=== PATIENT | male | born 1980 | race Caucasian/White ===

== ENCOUNTER 2024-05-20 20:53 | Emergency (ER) | payer SELFPAY ==
[2024-05-20 21:48] VITALS: TEMP 99.2
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
[2024-05-21] VITALS: PULSE 80
[2024-05-21 00:02] VITALS: BP 128/76; RESP 17
[2024-05-21 00:04] VITALS: O2SAT 95
[2024-05-21] MEDS ORDERED: NORCO 5/325 MG ONE (00:09)
[2024-05-21] MEDS: NORCO 5/325 MG PO ONE (00:09)
== END 2024-05-21 00:21 | disposition home or self-care (01) ==
LOC: ED 20:53
DX: S22.31XA Fracture of one rib, right side, initial encounter for closed fracture (principal); S40.011A Contusion of right shoulder, initial encounter; V13.4XXA Pedal cycle driver injured in collision with car, pick-up truck or van in traffic accident, initial encounter; Y93.55 Activity, bike riding
CPT/HCPCS: 71250; 99283; A9270-GY

== ENCOUNTER 2024-05-29 08:53 | Observation (INO) | payer SELFPAY ==
--- NOTE | 2024-05-29 09:18 | ERPHSYRPT ---
- History of Present Illness Time Seen by Provider: 05/29/24 09:05 Source: patient Exam Limitations: no limitations Physician History: For the past 2 weeks pt has had shortness of air, nasal congestion and a non- productive cough; today diarrhea x2. Allergies/Adverse Reactions: No Known Drug Allergies Allergy (Verified 05/29/24 09:13) Home Medications: No Reportable Medications [No Reported Medications] 05/20/24 [History] Hx Tetanus, Diphtheria Vaccination/Date Given: Yes Hx Influenza Vaccination/Date Given: No Hx Pneumococcal Vaccination/Date Given: No Travel Risk - Emerging Infectious Disease Are you exhibiting symptoms associated with any current EIDs: No - Review of Systems Ears, Nose, & Throat: Nose Congestion Respiratory: Cough, Dyspnea Abdominal/Gastrointestinal: Diarrhea Genitourinary Symptoms: No Dysuria Neurological: No Headache - Past Medical History Pertinent Past Medical History: Yes Neurological History: No Pertinent History ENT History: No Pertinent History Cardiac History: No Pertinent History Respiratory History: No Pertinent History Endocrine Medical History: No Pertinent History Musculoskeletal History: No Pertinent History GI Medical History: No Pertinent History History: No Pertinent History Psycho-Social History: No Pertinent History Male Reproductive Disorders: No Pertinent History Other Medical History: hydrocele - Past Surgical History Past Surgical History: Yes Neuro Surgical History: No Pertinent History Cardiac: No Pertinent History Respiratory: No Pertinent History Gastrointestinal: Appendectomy Genitourinary: No Pertinent History Musculoskeletal: Orthopedic Surgery Male Surgical History: No Pertinent History Other Surgical History: R foot-pins - Social History Smoking Status: Never smoker Exposure to second hand smoke: No Drug Use: none - Social Determinants of Health Will the patient participate in the screening: Declined to provide - Nursing Vital Signs Nursing Vital Signs: Initial Vital Signs Temperature 97.6 F 05/29/24 09:05 Pulse Rate 91 H 05/29/24 09:05 Respiratory Rate 23 05/29/24 09:05 Blood Pressure 123/81 05/29/24 09:05 O2 Sat by Pulse Oximetry 99 05/29/24 09:05 Pain Scale Pain Intensity 0 - Physical Exam General Appearance: alert Eye Exam: PERRL/EOMI Ears, Nose, Throat Exam: nasal congestion, pharyngeal erythema Neck Exam: normal inspection Respiratory Exam: wheezing (minimal expiratory wheezing over posterior bases) Cardiovascular/Chest Exam: normal heart sounds Abdominal/Gastrointestinal Exam: normal bowel sounds Extremity Exam: No pedal edema Neurologic Exam: alert, cooperative Skin Exam: warm, dry SpO2 Interpretation: normal, hypoxic SpO2: 99 O2 Delivery: Room Air - Course EKG Interpreted by Me: RATE (89), Sinus Rhythm, NORMAL AXIS, Other (QTc = 466) - Radiology Exams Chest X-ray Interpretation: Discussed w/ radiologist (PA/lateral chest demonstrates new mild right middle lobe and lingula infiltrates/atelectasis without consolidation/large effusion. Remaining heart and lungs unremarkable. Bony thorax intact again with minimal levoscoliosis.) - CT Exams Chest CT Interpretation: Discussed w/radiologist (No obv) Ordered Tests: Active Orders 24 hr Category Date Time Status EKG-ER Only STAT Care 05/29/24 09:17 Active IV Insertion STAT Care 05/29/24 09:15 Active CHEST 2 VIEWS (PA AND LAT) Stat Exams 05/29/24 09:16 Completed CHEST WITH CONTRAST [CT] Stat Exams 05/29/24 10:44 Completed AMYLASE Stat Lab 05/29/24 09:25 Completed BLOOD CULTURE Stat Lab 05/29/24 10:55 Received CBC W DIFF Stat Lab 05/29/24 09:15 Completed CMP Stat Lab 05/29/24 09:25 Completed CULTURE,SPUTUM Stat Lab 05/29/24 10:40 Ordered D-DIMER QUANTITATIVE Stat Lab 05/29/24 09:25 Completed LIPASE Stat Lab 05/29/24 09:25 Completed MAGNESIUM Stat Lab 05/29/24 09:25 Completed TROPONIN Q4H Lab 05/29/24 09:25 Completed TROPONIN Q4H Lab 05/29/24 09:25 Completed TROPONIN Q4H Lab 05/29/24 17:15 Ordered UA W/RFX UR CULTURE Stat Lab 05/29/24 11:43 Completed Urine Triage Profile Stat Lab 05/29/24 11:43 Received Respiratory Therapy Assessment DAILY RT 05/29/24 09:22 Active Medication Summary Discontinued Medications Generic Name Dose Route Start Last Admin Trade Name Freq PRN Reason Stop Dose Admin Albuterol Sulfate 2.5 mg 05/29/24 09:17 05/29/24 09:23 Albuterol Sulfate 2.5 Mg/3 Ml Neb IH 05/29/24 09:18 2.5 mg STAT ONE Administration Albuterol Sulfate Confirm 05/29/24 09:21 Albuterol Sulfate 2.5 Mg/3 Ml Neb Administered 05/29/24 09:22 Dose 2.5 mg IH .STK-MED ONE Sodium Chloride 1,000 mls @ 999 mls/hr 05/29/24 09:15 05/29/24 10:35 Sodium Chloride 0.9% 1000 Ml IV 05/29/24 10:15 Infused .Q1H1M STA Infusion Sodium Chloride Confirm 05/29/24 09:32 Sodium Chloride 0.9% 1000 Ml Administered 05/29/24 09:33 Dose 1,000 mls @ ud .ROUTE .STK-MED ONE Ceftriaxone Sodium 1 gm in 100 mls @ 200 mls/hr 05/29/24 10:39 05/29/24 12:04 Rocephin 1 Gm / 100 Ml Nacl IV 05/29/24 11:08 Infused STAT ONE Infusion Azithromycin 500 mg in 250 mls @ 250 mls/hr 05/29/24 10:39 05/29/24 11:40 Zithromax 500 Mg/ 250 Ml Nacl Premix IV 05/29/24 11:38 250 mls/hr STAT STA 250 mls/hr Administration Ceftriaxone Sodium Confirm 05/29/24 11:20 Rocephin 1 Gm / 100 Ml Nacl Administered 05/29/24 11:21 Dose 1 gm in 100 mls @ ud IV .STK-MED ONE Azithromycin Confirm 05/29/24 11:39 Zithromax 500 Mg/ 250 Ml Nacl Premix Administered 05/29/24 11:40 Dose 500 mg in 250 mls @ ud IV .STK-MED ONE Lab/Rad Data: Laboratory Result Diagrams 05/29/24 09:15 05/29/24 09:25 Laboratory Results 05/29/24 05/29/24 05/29/24 Range/Units 11:43 09:42 09:42 WBC (4.23-9.07) x10^3/uL RBC (4.63-6.08) x10^6/uL Hgb (13.7-17.5) g/dL Hct (40.1-51.0) % MCV (79.0-92.2) fL MCH (25.7-32.2) pg MCHC (32.3-36.5) g/dL RDW (11.6-14.4) % Plt Count (163-337) x10^3/uL MPV (9.4-12.4) fL Gran % (34.0-67.9) % Immature Gran % (Auto) (0.001-0.429) % Nucleat RBC Rel Count (0.00-0.2) % Eos # (Auto) (0.04-0.54) x10^3/uL Immature Gran # (Auto) (0.001-0.031) x10^3u/L Absolute Lymphs (auto) (1.32-3.57) x10^3/uL Absolute Monos (auto) (0.30-0.82) x10^3/uL Absolute Nucleated RBC (0.00-0.012) x10^3u/L Lymphocytes % (21.8-53.1) % Monocytes % (5.3-12.2) % Eosinophils % (0.8-7.0) % Basophils % (0.2-1.2) % Absolute Granulocytes (1.78-5.38) x10^3/uL Basophils # (0.01-0.08) x10^3/uL D-Dimer (0.0-0.50) mg/L Sodium (135-145) mmol/L Potassium (3.5-5.1) mmol/L Chloride (98-107) mmol/L Carbon Dioxide (22-30) mmol/L Anion Gap (5-15) MEQ/L BUN (9-20) mg/dL Creatinine (0.66-1.25) mg/dL Estimated GFR ML/MIN Glucose (74-106) mg/dL Calcium (8.4-10.2) mg/dL Magnesium (1.6-2.3) mg/dL Total Bilirubin (0.2-1.3) mg/dL AST (17-59) U/L ALT (0-50) U/L Alkaline Phosphatase (38-126) U/L Troponin I (0.000-0.033) ng/mL Serum Total Protein (6.3-8.2) g/dL Albumin (3.5-5.0) g/dL Amylase (30-110) U/L Lipase (23-300) U/L Urine Color Yellow (Yellow) Urine Appearance Cloudy A (Clear) Urine pH 7.5 (4.6-8.0) Ur Specific [place] >=1.030 A (1.005-1.030) Urine Protein Negative (Negative) Urine Glucose (UA) Negative (Negative) mg/dL Urine Ketones Negative (Negative) Urine Blood Negative (Negative) Urine Nitrite Negative (Negative) Urine Bilirubin Negative (Negative) Urine Urobilinogen 1.0 A (0.2) mg/dL Ur Leukocyte Esterase Negative (Negative) U Hyaline Cast (Auto) NONE SEEN (0-2) /LPF Urine Microscopic RBC 0-2 (0-5) /HPF Urine Microscopic WBC 0-2 (0-5) /HPF Ur Epithelial Cells None Seen (None Seen) /HPF Urine Bacteria None Seen (None Seen) /HPF Urine Culture Reflexed NO (NO) Influenza Type A Ag NEGATIVE (NEGATIVE) Influenza Type B Ag NEGATIVE (NEGATIVE) RSV (PCR) NEGATIVE (NEGATIVE) SARS-CoV-2 (PCR) NEGATIVE (NEGATIVE) Group A Strep Antibody DETECTED (NEGATIVE) 05/29/24 05/29/24 05/29/24 Range/Units 09:25 09:25 09:25 WBC (4.23-9.07) x10^3/uL RBC (4.63-6.08) x10^6/uL Hgb (13.7-17.5) g/dL Hct (40.1-51.0) % MCV (79.0-92.2) fL MCH (25.7-32.2) pg MCHC (32.3-36.5) g/dL RDW (11.6-14.4) % Plt Count (163-337) x10^3/uL MPV (9.4-12.4) fL Gran % (34.0-67.9) % Immature Gran % (Auto) (0.001-0.429) % Nucleat RBC Rel Count (0.00-0.2) % Eos # (Auto) (0.04-0.54) x10^3/uL Immature Gran # (Auto) (0.001-0.031) x10^3u/L Absolute Lymphs (auto) (1.32-3.57) x10^3/uL Absolute Monos (auto) (0.30-0.82) x10^3/uL Absolute Nucleated RBC (0.00-0.012) x10^3u/L Lymphocytes % (21.8-53.1) % Monocytes % (5.3-12.2) % Eosinophils % (0.8-7.0) % Basophils % (0.2-1.2) % Absolute Granulocytes (1.78-5.38) x10^3/uL Basophils # (0.01-0.08) x10^3/uL D-Dimer 0.74 H* (0.0-0.50) mg/L Sodium 136 (135-145) mmol/L Potassium 3.5 (3.5-5.1) mmol/L Chloride 102 (98-107) mmol/L Carbon Dioxide 27 (22-30) mmol/L Anion Gap 10.6 (5-15) MEQ/L BUN 17 (9-20) mg/dL Creatinine 0.74 (0.66-1.25) mg/dL Estimated GFR 113.9 ML/MIN Glucose 136 H (74-106) mg/dL Calcium 8.7 (8.4-10.2) mg/dL Magnesium 1.7 (1.6-2.3) mg/dL Total Bilirubin 0.40 (0.2-1.3) mg/dL AST 62 H (17-59) U/L ALT 90 H (0-50) U/L Alkaline Phosphatase 85 (38-126) U/L Troponin I < 0.012 < 0.012 (0.000-0.033) ng/mL Serum Total Protein 6.5 (6.3-8.2) g/dL Albumin 3.4 L (3.5-5.0) g/dL Amylase 62 (30-110) U/L Lipase 132 (23-300) U/L Urine Color (Yellow) Urine Appearance (Clear) Urine pH (4.6-8.0) Ur Specific [place] (1.005-1.030) Urine Protein (Negative) Urine Glucose (UA) (Negative) mg/dL Urine Ketones (Negative) Urine Blood (Negative) Urine Nitrite (Negative) Urine Bilirubin (Negative) Urine Urobilinogen (0.2) mg/dL Ur Leukocyte Esterase (Negative) U Hyaline Cast (Auto) (0-2) /LPF Urine Microscopic RBC (0-5) /HPF Urine Microscopic WBC (0-5) /HPF Ur Epithelial Cells (None Seen) /HPF Urine Bacteria (None Seen) /HPF Urine Culture Reflexed (NO) Influenza Type A Ag (NEGATIVE) Influenza Type B Ag (NEGATIVE) RSV (PCR) (NEGATIVE) SARS-CoV-2 (PCR) (NEGATIVE) Group A Strep Antibody (NEGATIVE) 05/29/24 Range/Units 09:15 WBC 8.9 (4.23-9.07) x10^3/uL RBC 3.70 L (4.63-6.08) x10^6/uL Hgb 11.6 L (13.7-17.5) g/dL Hct 33.9 L (40.1-51.0) % MCV 91.6 (79.0-92.2) fL MCH 31.4 (25.7-32.2) pg MCHC 34.2 (32.3-36.5) g/dL RDW 12.4 (11.6-14.4) % Plt Count 181 (163-337) x10^3/uL MPV 8.6 L (9.4-12.4) fL Gran % 65.4 (34.0-67.9) % Immature Gran % (Auto) 0.4 (0.001-0.429) % Nucleat RBC Rel Count 0.0 (0.00-0.2) % Eos # (Auto) 0.16 (0.04-0.54) x10^3/uL Immature Gran # (Auto) 0.04 H (0.001-0.031) x10^3u/L Absolute Lymphs (auto) 1.92 (1.32-3.57) x10^3/uL Absolute Monos (auto) 0.96 H (0.30-0.82) x10^3/uL Absolute Nucleated RBC 0.00 (0.00-0.012) x10^3u/L Lymphocytes % 21.5 L (21.8-53.1) % Monocytes % 10.8 (5.3-12.2) % Eosinophils % 1.8 (0.8-7.0) % Basophils % 0.1 L (0.2-1.2) % Absolute Granulocytes 5.82 H (1.78-5.38) x10^3/uL Basophils # 0.01 (0.01-0.08) x10^3/uL D-Dimer (0.0-0.50) mg/L Sodium (135-145) mmol/L Potassium (3.5-5.1) mmol/L Chloride (98-107) mmol/L Carbon Dioxide (22-30) mmol/L Anion Gap (5-15) MEQ/L BUN (9-20) mg/dL Creatinine (0.66-1.25) mg/dL Estimated GFR ML/MIN Glucose (74-106) mg/dL Calcium (8.4-10.2) mg/dL Magnesium (1.6-2.3) mg/dL Total Bilirubin (0.2-1.3) mg/dL AST (17-59) U/L ALT (0-50) U/L Alkaline Phosphatase (38-126) U/L Troponin I (0.000-0.033) ng/mL Serum Total Protein (6.3-8.2) g/dL Albumin (3.5-5.0) g/dL Amylase (30-110) U/L Lipase (23-300) U/L Urine Color (Yellow) Urine Appearance (Clear) Urine pH (4.6-8.0) Ur Specific [place] (1.005-1.030) Urine Protein (Negative) Urine Glucose (UA) (Negative) mg/dL Urine Ketones (Negative) Urine Blood (Negative) Urine Nitrite (Negative) Urine Bilirubin (Negative) Urine Urobilinogen (0.2) mg/dL Ur Leukocyte Esterase (Negative) U Hyaline Cast (Auto) (0-2) /LPF Urine Microscopic RBC (0-5) /HPF Urine Microscopic WBC (0-5) /HPF Ur Epithelial Cells (None Seen) /HPF Urine Bacteria (None Seen) /HPF Urine Culture Reflexed (NO) Influenza Type A Ag (NEGATIVE) Influenza Type B Ag (NEGATIVE) RSV (PCR) (NEGATIVE) SARS-CoV-2 (PCR) (NEGATIVE) Group A Strep Antibody (NEGATIVE) - Progress Progress: unchanged Discussed with : Janice (Spoke with & discussed pt with Dr. Ledesma(~1200) - obs) Counseled pt/family regarding: lab results, diagnosis, rad results Medical Desision Making - Diagnostic Testing Diagnostic test were ordered, analyzed, and reviewed by me: Yes Radiological Interpretation: Discussed w/ radiologist - Departure Departure Disposition: Observation Clinical Impression: Strep pharyngitis, Bilateral pneumonia, Dyspnea Condition: Stable Critical Care Time: No Referrals: DOCTOR,NO FAMILY [Primary Care Provider] - Follow up/PCP as directed
[2024-05-29] MEDS ORDERED: PROVENTIL 2.5 MG/3 ML NEB IH ONE (09:21)
[2024-05-29] MEDS: PROVENTIL 2.5 MG/3 ML NEB IH ONE (09:23)
[2024-05-29] MEDS ORDERED: Sodium Chloride 0.9% 1000 ML 1,000 ML ONE (09:32)
[2024-05-29] MEDS: Sodium Chloride 0.9% 1000 ML 1,000 ML IV STA (09:33)
[2024-05-29 09:34] LABS: Absolute Neutrophil Ct (ANC) 5.82 x10^3/uL (1.78-5.38); BASOPHIL % 0.1 % (0.2-1.2); Basophil (Absolute #) 0.01 x10^3/uL (0.01-0.08); Eosinophil % 1.8 % (0.8-7.0); Eosinophil (Absolute #) 0.16 x10^3/uL (0.04-0.54); Hematocrit 33.9 % (40.1-51.0); Hemoglobin 11.6 g/dL (13.7-17.5); IMMATURE GRAN # 0.04 x10^3u/L (0.001-0.031); IMMATURE GRAN % 0.4 % (0.001-0.429); Lymphocyte (Absolute #) 1.92 x10^3/uL (1.32-3.57); Lymphocytes % 21.5 % (21.8-53.1); Mean Cell Volume 91.6 fL (79.0-92.2); Mean Corpuscular Hemoglobin 31.4 pg (25.7-32.2); Mean Corpuscular Hgb Concent. 34.2 g/dL (32.3-36.5); Mean Platelet Volume 8.6 fL (9.4-12.4); Monocyte (Absolute #) 0.96 x10^3/uL (0.30-0.82); Monocytes % 10.8 % (5.3-12.2); Neutrophil % 65.4 % (34.0-67.9); Platelet Count 181 x10^3/uL (163-337); Red Cell Distribution Width 12.4 % (11.6-14.4); White Blood Count 8.9 x10^3/uL (4.23-9.07)
[2024-05-29 09:59] LABS: ALBUMIN 3.4 g/dL (3.5-5.0); ALKALINE PHOSPHATASE 85 U/L (38-126); AMYLASE 62 U/L (30-110); ANION GAP 10.6 MEQ/L (5-15); BLOOD UREA NITROGEN 17 mg/dL (9-20); CHLORIDE 102 mmol/L (98-107); Calcium 8.7 mg/dL (8.4-10.2); Carbon Dioxide 27 mmol/L (22-30); Creatinine 1 0.74 mg/dL (0.66-1.25); EST GLOMERULAR FILTRATION RATE 113.9 ML/MIN; Glucose 136 mg/dL (74-106); LIPASE 132 U/L (23-300); MAGNESIUM 1.7 mg/dL (1.6-2.3); Potassium 3.5 mmol/L (3.5-5.1); SGOT/AST 62 U/L (17-59); SGPT/ALT 90 U/L (0-50); SODIUM 136 mmol/L (135-145); TROPONIN < 0.012 ng/mL (0.000-0.033); Total Protein 6.5 g/dL (6.3-8.2)
--- NOTE | 2024-05-29 10:08 | XRAY ---
Indication: Cough. Comparison: CT chest May 20, 2024 PA/lateral chest demonstrates new mild right middle lobe and lingula infiltrates/atelectasis without consolidation/large effusion. Remaining heart and lungs unremarkable. Bony thorax intact again with minimal levoscoliosis.
[2024-05-29 10:34] LABS: INFLUENZA A NEGATIVE (NEGATIVE); INFLUENZA B NEGATIVE (NEGATIVE); RESPIRATORY SYNCTIAL VIRUS NEGATIVE (NEGATIVE); SARS-CoV-2 Xpert Express NEGATIVE (NEGATIVE)
[2024-05-29] MEDS ORDERED: ROCEPHIN 1 GM / 100 ML NaCl 1 GM/100 ML IVPB IV ONE (11:20)
[2024-05-29] MEDS: ROCEPHIN 1 GM / 100 ML NaCl 1 GM/100 ML IVPB IV ONE (11:20)
--- NOTE | 2024-05-29 11:30 | XRAY ---
Indication: Short of breath. Elevated d-dimer. Multiple contiguous axial images obtained through the chest using 80 cc Isovue 370 contrast and PE protocol. Comparison: CT chest without contrast May 20, 2024. Adequate opacification pulmonary arteries. Mild diffuse respiration artifact limits evaluation of distal lobar and segmental branches. No obvious pulmonary embolus. Heart not enlarged. Aorta is normal course and caliber. No pathologic mediastinal/hilar lymphadenopathy. Lungs demonstrates new right middle lobe, medial right lower lobe, and lingula infiltrates/atelectasis. No effusion or pneumothorax. Bony thorax intact again with minimal multilevel degenerative endplate spurring and small multilevel thoracic Schmorl nodes. Limited upper abdomen again demonstrates diffuse fatty liver. Impression: 1. Respiration artifact limits evaluation for pulmonary embolus. No obvious pulmonary embolus. 2. New right middle lobe, right lower lobe, and lingula infiltrates/atelectasis. 3. Again chronic findings including fatty liver and chronic bony findings.
[2024-05-29] MEDS ORDERED: Zithromax 500 MG/ 250 ML NaCl Premix 500 MG/250 ML IVPB IV ONE (11:39)
[2024-05-29] MEDS: Zithromax 500 MG/ 250 ML NaCl Premix 500 MG/250 ML IVPB IV STA (11:40)
[2024-05-29 12:13] LABS: Appearance Cloudy (Clear); Bacteria None Seen /HPF (None Seen); Bilirubin Negative (Negative); Blood Negative (Negative); Epithelial Cells None Seen /HPF (None Seen); Glucose, Urine Negative (Negative); Hyaline Casts NONE SEEN /LPF (0-2); Ketones Negative (Negative); Leukocyte Esterase Negative (Negative); Nitrite Negative (Negative); Ph 7.5 (4.6-8.0); Protein,Urine Dip Negative (Negative); RBC 0-2 /HPF (0-5); Specific Gravity >=1.030 (1.005-1.030); WBC 0-2 /HPF (0-5)
[2024-05-29 12:14] LABS: ADD URINE CULTURE? NO (NO)
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
[2024-05-29 13:31] LABS: Barbiturate,Urine NEGATIVE (NEGATIVE); Benzodiazepine,Urine NEGATIVE (NEGATIVE); Cocaine,Urine NEGATIVE (NEGATIVE); Methadone,Urine NEGATIVE (NEGATIVE); Opiate,Urine NEGATIVE (NEGATIVE); PCP,Urine NEGATIVE (NEGATIVE); THC,Urine NEGATIVE (NEGATIVE)
[2024-05-29 13:51] LABS: Amphetamine,Urine POSITIVE (NEGATIVE)
[2024-05-29] MEDS: PROVENTIL 2.5 MG/3 ML NEB IH SCH (16:07)
[2024-05-29] MEDS: HYDROCODONE-CHLORPHEN ER SUSP PO PRN (17:53)
[2024-05-30 05:12] LABS: Absolute Neutrophil Ct (ANC) 4.22 x10^3/uL (1.78-5.38); BASOPHIL % 0.3 % (0.2-1.2); Basophil (Absolute #) 0.02 x10^3/uL (0.01-0.08); Eosinophil % 2.8 % (0.8-7.0); Hematocrit 37.7 % (40.1-51.0); Hemoglobin 12.9 g/dL (13.7-17.5); IMMATURE GRAN # 0.04 x10^3u/L (0.001-0.031); IMMATURE GRAN % 0.6 % (0.001-0.429); Lymphocyte (Absolute #) 1.86 x10^3/uL (1.32-3.57); Lymphocytes % 26.4 % (21.8-53.1); Mean Cell Volume 91.3 fL (79.0-92.2); Mean Corpuscular Hemoglobin 31.2 pg (25.7-32.2); Mean Corpuscular Hgb Concent. 34.2 g/dL (32.3-36.5); Mean Platelet Volume 8.6 fL (9.4-12.4); Monocyte (Absolute #) 0.71 x10^3/uL (0.30-0.82); Monocytes % 10.1 % (5.3-12.2); Neutrophil % 59.8 % (34.0-67.9); Platelet Count 225 x10^3/uL (163-337); Red Blood Count 4.13 x10^6/uL (4.63-6.08); Red Cell Distribution Width 12.5 % (11.6-14.4); White Blood Count 7.1 x10^3/uL (4.23-9.07)
[2024-05-30 05:33] LABS: ALBUMIN 3.6 g/dL (3.5-5.0); ANION GAP 9.8 MEQ/L (5-15); BILIRUBIN,TOTAL 0.4 mg/dL (0.2-1.3); Calcium 8.6 mg/dL (8.4-10.2); Creatinine 1 0.67 mg/dL (0.66-1.25); EST GLOMERULAR FILTRATION RATE 117.3 ML/MIN; Potassium 3.7 mmol/L (3.5-5.1); Total Protein 7.4 g/dL (6.3-8.2)
[2024-05-30 07:55] VITALS: RESP 16; O2SAT 96
[2024-05-30] MEDS: TYLENOL 325 MG PO PRN (08:03)
[2024-05-30] MEDS: Zithromax 500 MG/ 250 ML NaCl Premix 500 MG/250 ML IVPB IV SCH (09:14)
[2024-05-30] MEDS: ROCEPHIN 1 GM / 100 ML NaCl 1 GM/100 ML IVPB IV SCH (09:14)
[2024-05-30 10:36] VITALS: BP 125/86; PULSE 70; TEMP 97.4
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
== END 2024-05-30 13:45 | disposition home or self-care (01) ==
LOC: ED 08:53 → MED SURG 12:48
PROVIDERS: ADMIT Internal Medicine; ATTEND Internal Medicine
DX: J18.9 Pneumonia, unspecified organism (principal); R06.00 Dyspnea, unspecified; J02.0 Streptococcal pharyngitis; F15.90 Other stimulant use, unspecified, uncomplicated; R45.851 Suicidal ideations; R19.7 Diarrhea, unspecified
CPT/HCPCS: 0241U; 36000; 36415; 71046; 71260; 80053; 80307; 81001; 82150; 83690; 83735; 84484; 85025; 85379; 87040; 87651; 93005; 93268; 94640; 94762; 96365; 96367; 99285; G0378; Q3014; 90791; J0456; J0696; J7609; A9270-GY